=== PATIENT | male | born 1975 | race Caucasian/White ===

== ENCOUNTER 2019-01-22 13:01 | Emergency (ER) | payer MEDICAID ==
[~2019-01-22] VITALS: Ht 172.7 cm; Wt 78.0 kg
[2019-01-22] MEDS ORDERED: HYDROCODONE/APAP 10-325 MG TABLET ONE (14:08)
[2019-01-22] MEDS ORDERED: HYDROCODONE/APAP 10-325 MG TABLET PO ONE (14:15)
--- NOTE | 2019-01-22 14:25 | NUR ---
Pt instructed on proper use of crutches. Patient able to demonstrate correct use of crutches. Patient discharged to home in stable conditon. Written and verbal after care instructions given to patient. Patient verbalizes understanding of instructions.
== END 2019-01-22 14:32 | disposition home or self-care (01) ==
LOC: ER 13:01
DX: S76.112A Strain of left quadriceps muscle, fascia and tendon, initial encounter (principal); W51.XXXA Accidental striking against or bumped into by another person, initial encounter; Y93.89 Activity, other specified; Y92.89 Other specified places as the place of occurrence of the external cause; Y99.8 Other external cause status
CPT/HCPCS: A4663